=== PATIENT | female | born 1985 | race Two or more races ===

== ENCOUNTER 2020-02-13 15:00 | Emergency (ER) | payer SELFPAY ==
[~2020-02-13] VITALS: Ht 172.7 cm; Wt 83.0 kg
[2020-02-13 16:30] VITALS: BP 138/80
[2020-02-13 16:35] LABS: HEMATOCRIT. 37.2 % (36.0-48.0); HEMOGLOBIN. 12.4 g/dL (12.0-16.0); MEAN CORPUSCULAR HEMOGLOBIN 30.9 pg (28.0-32.0); MEAN CORPUSCULAR VOLUME 92.7 fL (81.0-99.0); MEAN PLATELET VOLUME 10.3 fl (7.4-10.4); PLATELET 159 x1000/uL (130-400); RED BLOOD CELL COUNT 4.01 mill/uL (4.2-5.4); RED CELL DISTRIBUTION WIDTH 13.4 % (11.6-14.6)
[2020-02-13 16:43] LABS: CHLORIDE 110 mEq/L (98-107)
[2020-02-13 17:47] LABS: PLATELET ESTIMATE NORMAL
== END 2020-02-13 18:19 | disposition left against medical advice (07) ==
LOC: ER 15:00
DX: F29 Unspecified psychosis not due to a substance or known physiological condition (principal)
CPT/HCPCS: 36415; 80048; 85025; 99283

== ENCOUNTER 2020-02-13 23:55 | Emergency (ER) | payer SELFPAY | END 2020-02-14 00:56 | disposition left against medical advice (07) | LOC: ER 23:55 | DX: Z53.21 Procedure and treatment not carried out due to patient leaving prior to being seen by health care provider (principal) ==